=== PATIENT | female | born 1965 | race Caucasian/White ===

== ENCOUNTER 2016-08-17 22:15 | Inpatient (IN) | payer MEDICARE, BC ==
--- NOTE | ~2016-08-17 | HP ---
History And Physical [place] [id number] [facility] [place] [place]. [address] NAME: MANUEL BURNS : 67 STATUS : ADM IN [facility]#: [id number] AGE: 50 ADM/REG DATE : 08/17/16 MR#: [id number] REPORT SERV DATE: 08/18/16 DICTATED BY: RON DELEON DATE: 08/17/16 REPORT STATUS : Draft TRANSCRIBED BY: MODL DATE: 08/17/16 DATE OF ADMISSION: 08/17/2016 HISTORY OF PRESENT ILLNESS: Ms. Burns is a 50-year-old white female, with end-stage renal disease, Thursday, Thursday, Thursday [facility]; admitted through the emergency room at [facility] for DKA. PAST MEDICAL HISTORY: End-stage renal disease, on hemodialysis; CVA in February 2016 which required prolonged rehabilitation has recovered now, diabetes mellitus type 1, chronic hypertension, hyperlipidemia and multiple allergies. ALLERGIES: SULFA, IBUPROFEN, CLINDAMYCIN, CIPROFLOXACIN, ADHESIVE, SIMVASTATIN, DILAUDID, VANCOMYCIN, AND TEGADERM. SOCIAL HISTORY: Not relevant. FAMILY HISTORY: Not relevant except for several family members have come up down with viral infection, upper respiratory infection which she believes she is contracted. REVIEW OF SYSTEMS: Chest pain this evening while she was working in the house went to the emergency room at [facility] for evaluation and found to have minimally elevated troponin, her blood sugar was quite high and she had positive ketones. This morning her fasting blood sugars over 300 which is unusual for her, but she attributed to the upper respiratory infection she was getting. Family members had been sick with this and she was with the family members on Thursday when they took her to dialysis. Chest pain resolved after 2 mg of morphine at [facility] emergency room. Remainder review of systems was negative with afebrile and no arrhythmias. PHYSICAL EXAMINATION: VITAL SIGNS: Blood pressure 177/72, heart rate of 99, respirations 20, temperature 97.9. GENERAL: Alert, cooperative, no acute distress. Oriented x3. In intensive care unit on insulin drip. Repeat lab work pending. LUNGS: Clear. CARDIOVASCULAR: Grade 2/6 heart ejection murmur. ABDOMEN: Soft, benign. Bowel sounds present. Nontender. EXTREMITIES: 2+ edema in the lower extremities. AV graft in the left upper extremity. NEUROLOGICAL: Neurologically nonfocal. Oriented x3. HOME MEDICATIONS: Allopurinol, ascorbic acid, aspirin, calcium acetate, docusate, ferrous fumarate, gabapentin, hydrocodone, sliding scale insulin NovoLog, 15 units of insulin Lantus at night, Imdur, EMLA cream, Claritin, Protonix, pravastatin, and Renvela. LABS: Lab work shows blood gas of 7.41, pCO2 of 34, PO2 of 83, room air 98.6% saturated. Sodium 134, potassium 6.7, chloride 92, CO2 of 21, BUN of 449, creatinine 9.44. Blood sugar 408, calcium 8.4, magnesium 2.3, albumin 3.5. Normal liver enzymes, elevated troponin of History And Physical [address] [place]. [address] NAME: MANUEL BURNS : 67 STATUS : ADM IN [facility]#: [id number] AGE: 50 ADM/REG DATE : 08/17/16 MR#: [id number] REPORT SERV DATE: 08/18/16 DICTATED BY: RON DELEON DATE: 08/17/16 REPORT STATUS : Draft TRANSCRIBED BY: NANDA DATE: 08/17/16 0.18. White count is 7.7, hemoglobin 11, hematocrit 37, platelet count 166,000. INR 1.1. Chest x-ray clear right shoulder prosthesis and left subclavian stent. ASSESSMENT: 1. Poorly controlled diabetes mellitus type 1 with ketosis. Blood sugar greater than 400 on insulin drip. Does not know the exact etiology but she suspects it is a viral infection. No signs of infection at present. 2. Hyperkalemia thought to be secondary to elevated blood sugar but also because of excess p.o. intake of potassium. 3. End-stage renal disease, on hemodialysis Thursday, Thursday, and Thursday. 4. CVA, February 2016 requiring hospitalization and rehabilitation, has done well with that. 5. Hypertension. 6. Hyperlipidemia. 7. Multiple allergies. 8. Positive troponin. We will watch consult Cardiology if it remains elevated. 9. Nausea and vomiting. I am not sure of etiology but suspect it has some to do with her viral illness. PLAN: We will continue the insulin drip. If potassium remains over 6 with a repeat lab work in [facility], we will plan on dialysis tonight, orders written. I was in the IMCU when she arrived from [facility]. GUY/NANDA Ron Deleon M.D. / [id number] CC: Ron Deleon M.D.
--- NOTE | ~2016-08-17 | DS ---
Discharge Summary [facility] [address] [place]. [address] NAME: MANUEL BURNS : 67 STATUS : DIS IN PAT#: [id number] AGE: 51 ADM/REG DATE : 08/17/16 MR#: [id number] REPORT SERV DATE: 09/05/16 DICTATED BY: LINCOLN DARNELL DATE: 09/04/16 REPORT STATUS : Draft TRANSCRIBED BY: NANDA DATE: 09/04/16 Data Collection from hospitalization DISCHARGE DIAGNOSES: 1. End-stage renal disease. 2. Insulin-dependent diabetes mellitus. 3. Hypertension. 4. History of cerebrovascular accident. 5. Hyperlipidemia. CONSULTATIONS: 1. Shaggy Barlow M.D. 2. West Cabello M.D. PROCEDURES PERFORMED: Cardiac catheterization, 08/20/2016. MEDICATIONS: Zyloprim 100 mg daily, vitamin C 250 mg twice a day, aspirin 81 mg twice a day, PhosLo 2 tablets as instructed, docusate sodium 100 mg twice a day, ferrous sulfate 65 mg twice a day, Neurontin 600 mg three times a day, NovoLog injection insulin before meals and at bedtime, Lantus 15 units subcutaneously daily, Imdur 60 mg daily, Emla cream one application topically prior to dialysis, Prinivil 5 mg at bedtime, Claritin 10 mg daily, Protonix 40 mg daily, Pravachol 40 mg at bedtime, and Renvela 1600 mg with meals. CONDITION AT DISCHARGE: Stable. DISPOSITION: The patient was discharged home on a clear liquid diet with activities as instructed. She will follow up with me in 4 weeks following discharge. HOSPITAL COURSE: This is a 51-year-old female who has end-stage renal disease and dialyzes on Mondays, Wednesdays, and Fridays. She presented to the emergency room at [facility] for diabetic ketoacidosis. She also developed chest pain that evening while working in the house. She had been evaluated at [facility] and was found to have minimally elevated troponin. Her blood sugar was quite high, and she had positive ketones. Her chest pain resolved after 2 mg of morphine in the emergency room. Her creatinine level was 9.44, blood sugar was 408. Chest x-ray showed right shoulder prosthesis and left subclavian stent. She was felt to have poorly controlled type 1 diabetes mellitus with ketosis. Hyperkalemia was thought to be secondary to elevated blood sugar, but also because of excess oral intake of potassium. Insulin drip was continued. She was transferred to [facility] and admitted at this time for further evaluation and treatment. Upon admission, dialysis therapy was going to be performed. She was placed in the IMCU. The following day, she said her chest pain had improved. She had trace edema. Hemodialysis therapy was performed. She was seen by Dr. Shaggy Barlow regarding elevated troponin. She has no history of coronary artery disease. Potassium level was greater than 7. She had developed substernal chest discomfort. There were no EKG changes noted reflective of ischemia or infarction. Troponin was mildly elevated at slightly greater than 1. Second troponin was 1.3. Chest discomfort resolved as the diabetic ketoacidosis resolved. EKG showed normal sinus rhythm, normal NM, QRS, and QT intervals. There was no discrete Discharge Summary [address] [place]. [address] NAME: MANUEL BURNS : 67 STATUS : DIS IN PAT#: [id number] AGE: 51 ADM/REG DATE : 08/17/16 MR#: [id number] REPORT SERV DATE: 09/05/16 DICTATED BY: LINCOLN DARNELL DATE: 09/04/16 REPORT STATUS : Draft TRANSCRIBED BY: NANDA DATE: 09/04/16 evidence for myocardial infarction or ischemia. He recommended treatment of her diabetic ketoacidosis event and dialysis as necessary to treat her potassium elevation. At this point, he did not feel that she would need to undergo ischemic workup. He was going to consider stress testing as an outpatient especially if there was recurrence of chest discomfort. On the , metoprolol was added. Repeat troponin was going to be obtained. ECG revealed sinus rhythm. An echocardiogram was going to be performed. If potassium level improved and glucose level, it was felt that the patient should undergo cardiac catheterization and possible percutaneous coronary intervention. Cardiac evaluation was in progress Lantus was increased. Hemodialysis therapy continued. She was seen by Dr. West Cabello. The patient denies any history of access issues recently in outpatient dialysis. She was going to be held n.p.o. after midnight. It was felt that the patient may need to undergo left upper extremity fistulogram, possible stent/angioplasty. On 08/20/2016, echocardiogram was performed. She felt well. She had no chest pain or shortness of breath. Her lungs were clear. Pravastatin was changed to atorvastatin. Metoprolol was continued as well as Imdur and aspirin. She felt like she had "fluttering in her chest." Potassium level had normalized. She does have chronic lower extremity erythema. Her diabetes remained under poor control. She was taken to the cardiac director of cath lab where she underwent the above-mentioned procedure by Dr. Warren Huddleston. She tolerated this well. There were no complications. On 08/21/2016, medical therapy has been recommended for coronary artery disease due to small vessels. A fistulogram was going to be performed. She underwent diabetes education. The next day, it was elected to wait 36 hours on fistulogram because the patient had cardiac catheterization on the day that was scheduled for the fistulogram. A recent fistulogram had been performed on 07/10. Observation was recommended. On 08/23/2016, the patient was wanting to go home. Over the next couple of days, she had no shortness of breath or chest pain. Her constipation had improved. Discharge planning was performed. The patient was going to follow up as an outpatient with Dr. Cabello. On 08/25/2016, she was in no acute distress. Discharge instructions were given. She was evaluated by Physical Therapy. Due to her improved and stable condition, she was discharged home with the above-stated instructions. Information collected by: Jing Fields I submit the above information as my discharge summary. TG/MODL Lincoln Darnell M.D. / [id number] CC: Janet Davenport M.D. Discharge Summary [address] [address] NAME: MANUEL BURNS : 67 STATUS : DIS IN [facility]#: [id number] AGE: 51 ADM/REG DATE : 08/17/16 MR#: [id number] REPORT SERV DATE: 09/05/16 DICTATED BY: LINCOLN DARNELL DATE: 09/04/16 REPORT STATUS : Draft TRANSCRIBED BY: NANDA DATE: 09/04/16 Dr. Jc Cabello II, M.D.
--- NOTE | ~2016-08-17 | CN ---
Consultation Report [facility] [address] [place]. [address] NAME: MANUEL TURNER : 67 STATUS : ADM IN PAT#: [id number] AGE: 50 ADM/REG DATE : 08/17/16 MR#: [id number] REPORT SERV DATE: 08/18/16 DICTATED BY: ADORE ZENDEJAS DATE: 08/18/16 REPORT STATUS : Draft TRANSCRIBED BY: MODL DATE: 08/18/16 CARDIOLOGY CONSULTATION DATE OF CONSULTATION: 08/18/2016 REASON FOR CONSULTATION: Elevated troponin. HISTORY OF PRESENT ILLNESS: Ms. Turner is a pleasant 50-year-old woman with no history of coronary artery disease. She does have end-stage renal disease and is on Thursday, Thursday, Thursday dialysis. She was admitted with DKA, which she has had on several occasions in the past. Her glucose was 400 and her potassium was greater than 7, and she received emergency dialysis along with IV insulin administration. In this setting, she developed substernal chest discomfort. There were no EKG changes noted reflective of ischemia or infarction. The troponin was mildly elevated at slightly greater than 1, and the second troponin was at 1.3. The chest discomfort resolved as the DKA resolved. The patient denies any problems with chest discomfort, chest pressure or pain in the weeks prior to her DKA event. PAST MEDICAL HISTORY: Notable for: 1. End-stage renal disease, on Thursday, Thursday, Thursday dialysis. 2. Type 1 diabetes. 3. Hypertension. 4. History of CVA in 02/2016, at which time she underwent implantable loop recorder by Dr. Daniel Centeno. HOME MEDICATIONS: Include allopurinol, aspirin 81 mg daily, iron, insulin, isosorbide, lisinopril, Pravachol. FAMILY HISTORY: Negative for premature coronary disease. SOCIAL HISTORY: Negative for tobacco or alcohol. REVIEW OF SYSTEMS: As noted above. All other systems reviewed and negative. PHYSICAL EXAMINATION: VITAL SIGNS: Currently, pulse of 82, blood pressure of 120/60, respirations 16. GENERAL: Well developed, well nourished. HEENT: No icterus. Good dentition. NECK: Supple. No masses or thyromegaly. LUNGS: Breathing comfortably. No rales or wheezes. COR: Normal S1 and S2. No S3 or S4. No murmurs, clicks, rubs. No JVD. ABD: Soft, nondistended, nontender. No hepatosplenomegaly. EXT: No clubbing, cyanosis, or edema. Peripheral pulses 2+/= bilaterally. SKIN: Warm and dry. No visible lesions. Consultation Report [facility] [address] [place]. [address] NAME: MANUEL TURNER : 67 STATUS : ADM IN [facility]#: [id number] AGE: 50 ADM/REG DATE : 08/17/16 MR#: [id number] REPORT SERV DATE: 08/18/16 DICTATED BY: ADORE ZENDEJAS DATE: 08/18/16 REPORT STATUS : Draft TRANSCRIBED BY: NANDA DATE: 08/18/16 MS: Chest wall without deformity. No obvious clavicular fractures. NEURO/PSYCH: Oriented x3. No anxiety or depression. DATA: EKG shows normal sinus rhythm. Normal [place], QRS, and QT intervals. No discrete evidence for myocardial infarction or ischemia. IMPRESSION: 1. The patient with complaints of chest discomfort that occurred in the setting of diabetic ketoacidosis with a glucose of 400 and a potassium of greater than 7. There was no ischemia or infarction reflected on her EKG. Her chest discomfort has resolved. She has a slight troponin elevation, but essentially unchanged on a second troponin. She does not have any chest discomfort currently and did not have any in the weeks prior to her diabetic ketoacidosis. I would recommend treatment of her diabetic ketoacidosis event and dialysis as necessary to treat her potassium elevation. Careful monitoring of potassium obviously important given the potential for fluctuations in serum potassium levels in the setting of diabetic ketoacidosis, especially along with dialysis. At this point, I do not feel she needs to undergo ischemic workup. We could consider stress testing as an outpatient, especially if there is any recurrence of chest discomfort. 2. History of cerebrovascular accident in 02/2016, status post implantable loop recorder by Dr. Centeno. As of yet, no demonstration of atrial fibrillation to suggest changing management for cerebrovascular accident. REBA/NANDA Adore Zendejas M.D. / [id number] CC: Ron Elizondo M.D.
[~2016-08-17 22:15] MED LIST: ALKA SELTZER CHEWS; ALKA SELTZER CHEWS PO; ALPHAGAN OPH; ASAB PO; ATROPINE SUL1 % OPH; BIST PO; CLARIT10 PO; COSOPT OPH; DIAM250B PO; DOK100 MG PO; DSS PO; EMLA TOP; EPOGEN2000 MG/ML IV; FERROUS SULF324 MG PO; FERROUS SULF325 M1 PO; FERROUS SULFATE PO; FLORASTOR250 MG PO; HALF81 PO; IMDUR60 PO; IRON325 MG PO; K500 PO; L80 PO; LANTUS SC; MAXITROL OPH; NEPHROCAPS PO; NEUR400 PO; NEUR600 PO; NORCO1 TAB PO; NORV5 PO; NOVOLOG SC; OXYCOD PO; PHOSLO PO; PRAVACHOL40 MG PO; PRIN5 PO; PROTONIX PO; RENVELA800 MG PO; SEVE800T PO; STOOL SOFTEN100 MG PO; TRAVATAN Z0.004 % OPH; TRESIBA SC; TUMS E-X750 M2 PO; VITAMIN C100 MG PO; VITC500 PO; Z100 PO; ZANTAC OTC PO; ZESTRIL5 MG PO; ZOFRAN4 PO; [UNRECOGNIZED DRUG - OTHER] PO
[2016-08-17 23:41] LABS: ALBUMIN 3.2 G/DL (3.5-5.0); CHLORIDE, SERUM 95 MMOL/L (96-112); CREATININE 9.86 MG/DL (0.55-1.02); GFR AFRICAN AMERICAN 5 ML/MIN (>=60); GFR NON AFRICAN AMERICAN 4 ML/MIN (>=60); PHOSPHORUS, SERUM 3.4 MG/DL (2.5-4.5); SODIUM, SERUM 137 MMOL/L (135-148)
[2016-08-17 23:46] LABS: BUN (BLOOD UREA NITROGEN) 57 MG/DL (6-23); CO2 (CARBON DIOXIDE) 26 MMOL/L (24-34); GLUCOSE, SERUM 314 MG/DL (60-99); POTASSIUM, SERUM 5.2 MMOL/L (3.5-5.3); TROPONIN I 0.21 NG/ML (<0.05)
[2016-08-18 04:46] LABS: BASOPHILS 0.3 %; BASOPHILS ABSOLUTE 0.02 10/3/uL (0.0-0.16); EOSINOPHILS 2.8 %; EOSINOPHILS ABSOLUTE 0.18 10/3/uL (0.0-0.53); HEMATOCRIT 34.8 % (36.0-48.0); HEMOGLOBIN 11.2 g/dL (12.0-16.0); IMMATURE GRANULOCYTES 0.2 %; IMMATURE GRANULOCYTES ABSOLUTE 0.01 10/3/uL (0.0-0.11); LYMPHOCYTES ABSOLUTE 1.95 10/3/uL (0.67-4.30); MEAN CORPUS HGB CONC 32.2 g/dL (32.0-36.0); MEAN CORPUSCULAR HEMOGLOB 30.6 pg (26.0-34.0); MEAN CORPUSCULAR VOLUME 95.1 fL (80-100); MEAN PLATELET VOLUME 10.5 fL (9.2-13.0); MONOCYTES 13.1 %; MONOCYTES ABSOLUTE 0.85 10/3/uL (0.21-1.20); NEUTROPHILS 53.6 %; PLATELET COUNT 201 10/3/uL (150-400); RBC DISTRIBUTION WIDTH 13.9 % (12.0-16.0); RED CELL COUNT 3.66 10/6/uL (4.0-5.6); WHITE BLOOD CELLS 6.5 10/3/uL (4.5-10.5)
[2016-08-18 04:48] LABS: MANUAL DIFF NO %
[2016-08-18 05:05] LABS: ALBUMIN 3.2 G/DL (3.5-5.0); BUN (BLOOD UREA NITROGEN) 58 MG/DL (6-23); CALCIUM, SERUM 9.3 MG/DL (8.5-10.4); CHLORIDE, SERUM 96 MMOL/L (96-112); GFR AFRICAN AMERICAN 5 ML/MIN (>=60); GFR NON AFRICAN AMERICAN 4 ML/MIN (>=60); POTASSIUM, SERUM 5.2 MMOL/L (3.5-5.3); SODIUM, SERUM 141 MMOL/L (135-148)
[2016-08-18 05:07] LABS: CO2 (CARBON DIOXIDE) 31 MMOL/L (24-34); GLUCOSE, SERUM 105 MG/DL (60-99); TROPONIN I 1.03 NG/ML (<0.05)
[2016-08-18 08:56] LABS: ALBUMIN 3.2 G/DL (3.5-5.0); BUN (BLOOD UREA NITROGEN) 57 MG/DL (6-23); CALCIUM, SERUM 8.8 MG/DL (8.5-10.4); CHLORIDE, SERUM 95 MMOL/L (96-112); CO2 (CARBON DIOXIDE) 24 MMOL/L (24-34); GFR AFRICAN AMERICAN 5 ML/MIN (>=60); GFR NON AFRICAN AMERICAN 4 ML/MIN (>=60); GLUCOSE, SERUM 295 MG/DL (60-99); PHOSPHORUS, SERUM 4.4 MG/DL (2.5-4.5); POTASSIUM, SERUM 7.2 MMOL/L (3.5-5.3); SODIUM, SERUM 135 MMOL/L (135-148)
[2016-08-18 11:35] LABS: ALBUMIN 3.1 G/DL (3.5-5.0); CALCIUM, SERUM 9.2 MG/DL (8.5-10.4); CHLORIDE, SERUM 93 MMOL/L (96-112); CO2 (CARBON DIOXIDE) 26 MMOL/L (24-34); GLUCOSE, SERUM 259 MG/DL (60-99); PHOSPHORUS, SERUM 4.1 MG/DL (2.5-4.5); SODIUM, SERUM 136 MMOL/L (135-148)
[2016-08-18 11:37] LABS: BUN (BLOOD UREA NITROGEN) 62 MG/DL (6-23); GFR AFRICAN AMERICAN 4 ML/MIN (>=60); GFR NON AFRICAN AMERICAN 4 ML/MIN (>=60)
[2016-08-18 11:38] LABS: TROPONIN I 1.37 NG/ML (<0.05)
[2016-08-18 20:24] LABS: ALBUMIN 2.8 G/DL (3.5-5.0); CALCIUM, SERUM 8.7 MG/DL (8.5-10.4); CHLORIDE, SERUM 94 MMOL/L (96-112); CO2 (CARBON DIOXIDE) 26 MMOL/L (24-34); SODIUM, SERUM 134 MMOL/L (135-148)
[2016-08-18 20:31] LABS: BUN (BLOOD UREA NITROGEN) 39 MG/DL (6-23); GFR AFRICAN AMERICAN 7 ML/MIN (>=60); GFR NON AFRICAN AMERICAN 6 ML/MIN (>=60); GLUCOSE, SERUM 362 MG/DL (60-99); PHOSPHORUS, SERUM 3.7 MG/DL (2.5-4.5); POTASSIUM, SERUM 5.5 MMOL/L (3.5-5.3)
[2016-08-18 21:57] LABS: BASOPHILS 0.4 %; BASOPHILS ABSOLUTE 0.03 10/3/uL (0.0-0.16); EOSINOPHILS 1.4 %; EOSINOPHILS ABSOLUTE 0.11 10/3/uL (0.0-0.53); HEMOGLOBIN 10.8 g/dL (12.0-16.0); IMMATURE GRANULOCYTES 0.5 %; IMMATURE GRANULOCYTES ABSOLUTE 0.04 10/3/uL (0.0-0.11); LYMPHOCYTES 19.1 %; LYMPHOCYTES ABSOLUTE 1.47 10/3/uL (0.67-4.30); MEAN CORPUSCULAR VOLUME 94.7 fL (80-100); MEAN PLATELET VOLUME 10.8 fL (9.2-13.0); MONOCYTES 13.2 %; MONOCYTES ABSOLUTE 1.01 10/3/uL (0.21-1.20); NEUTROPHILS 65.4 %; NEUTROPHILS ABSOLUTE 5.02 10/3/uL (2.02-8.40); PLATELET COUNT 167 10/3/uL (150-400); RBC DISTRIBUTION WIDTH 13.9 % (12.0-16.0); RED CELL COUNT 3.18 10/6/uL (4.0-5.6); WHITE BLOOD CELLS 7.7 10/3/uL (4.5-10.5)
[2016-08-18 21:58] LABS: HEMATOCRIT 30.1 % (36.0-48.0); MANUAL DIFF NO %; MEAN CORPUS HGB CONC 35.9 g/dL (32.0-36.0)
[2016-08-19 02:42] LABS: ALBUMIN 3.1 G/DL (3.5-5.0); CALCIUM, SERUM 8.9 MG/DL (8.5-10.4); CHLORIDE, SERUM 94 MMOL/L (96-112); CO2 (CARBON DIOXIDE) 29 MMOL/L (24-34); SODIUM, SERUM 133 MMOL/L (135-148)
[2016-08-19 02:43] LABS: BUN (BLOOD UREA NITROGEN) 47 MG/DL (6-23); CREATININE 8.47 MG/DL (0.55-1.02); GFR AFRICAN AMERICAN 6 ML/MIN (>=60); GFR NON AFRICAN AMERICAN 5 ML/MIN (>=60); GLUCOSE, SERUM 402 MG/DL (60-99); PHOSPHORUS, SERUM 3.9 MG/DL (2.5-4.5)
[2016-08-19 02:44] LABS: POTASSIUM, SERUM 6.5 MMOL/L (3.5-5.3)
[2016-08-19 07:05] LABS: BASOPHILS 0.1 %; BASOPHILS ABSOLUTE 0.01 10/3/uL (0.0-0.16); EOSINOPHILS 1.5 %; HEMOGLOBIN 11.1 g/dL (12.0-16.0); IMMATURE GRANULOCYTES 0.3 %; IMMATURE GRANULOCYTES ABSOLUTE 0.02 10/3/uL (0.0-0.11); LYMPHOCYTES 14.8 %; LYMPHOCYTES ABSOLUTE 1.02 10/3/uL (0.67-4.30); MEAN CORPUSCULAR HEMOGLOB 31.7 pg (26.0-34.0); MEAN CORPUSCULAR VOLUME 95.4 fL (80-100); MEAN PLATELET VOLUME 10.7 fL (9.2-13.0); MONOCYTES 7.1 %; MONOCYTES ABSOLUTE 0.49 10/3/uL (0.21-1.20); NEUTROPHILS 76.2 %; NEUTROPHILS ABSOLUTE 5.25 10/3/uL (2.02-8.40); PLATELET COUNT 165 10/3/uL (150-400); RBC DISTRIBUTION WIDTH 13.7 % (12.0-16.0); WHITE BLOOD CELLS 6.9 10/3/uL (4.5-10.5)
[2016-08-19 07:07] LABS: HEMATOCRIT 33.4 % (36.0-48.0); MANUAL DIFF NO %; MEAN CORPUS HGB CONC 33.2 g/dL (32.0-36.0)
[2016-08-19 15:19] LABS: ALBUMIN 3.5 G/DL (3.5-5.0); CALCIUM, SERUM 9.6 MG/DL (8.5-10.4); CHLORIDE, SERUM 101 MMOL/L (96-112); CO2 (CARBON DIOXIDE) 31 MMOL/L (24-34); PHOSPHORUS, SERUM 3.1 MG/DL (2.5-4.5)
[2016-08-19 15:20] LABS: SODIUM, SERUM 141 MMOL/L (135-148)
[2016-08-19 15:22] LABS: BUN (BLOOD UREA NITROGEN) 32 MG/DL (6-23); CREATININE 6.44 MG/DL (0.55-1.02); GFR AFRICAN AMERICAN 8 ML/MIN (>=60); GFR NON AFRICAN AMERICAN 7 ML/MIN (>=60); GLUCOSE, SERUM 153 MG/DL (60-99)
[2016-08-19 15:24] LABS: TROPONIN I 2.15 NG/ML (<0.05)
[2016-08-19 15:25] LABS: POTASSIUM, SERUM 4.3 MMOL/L (3.5-5.3)
[2016-08-20 05:31] LABS: BASOPHILS 0.2 %; BASOPHILS ABSOLUTE 0.02 10/3/uL (0.0-0.16); EOSINOPHILS 2.1 %; EOSINOPHILS ABSOLUTE 0.17 10/3/uL (0.0-0.53); HEMOGLOBIN 11.3 g/dL (12.0-16.0); IMMATURE GRANULOCYTES 0.4 %; IMMATURE GRANULOCYTES ABSOLUTE 0.03 10/3/uL (0.0-0.11); LYMPHOCYTES 24.2 %; LYMPHOCYTES ABSOLUTE 1.96 10/3/uL (0.67-4.30); MEAN CORPUS HGB CONC 32.3 g/dL (32.0-36.0); MEAN CORPUSCULAR HEMOGLOB 30.5 pg (26.0-34.0); MEAN CORPUSCULAR VOLUME 94.3 fL (80-100); MEAN PLATELET VOLUME 10.8 fL (9.2-13.0); MONOCYTES 10.7 %; MONOCYTES ABSOLUTE 0.87 10/3/uL (0.21-1.20); NEUTROPHILS 62.4 %; NEUTROPHILS ABSOLUTE 5.05 10/3/uL (2.02-8.40); PLATELET COUNT 182 10/3/uL (150-400); RBC DISTRIBUTION WIDTH 13.7 % (12.0-16.0); RED CELL COUNT 3.71 10/6/uL (4.0-5.6); WHITE BLOOD CELLS 8.1 10/3/uL (4.5-10.5)
[2016-08-20 05:32] LABS: MANUAL DIFF NO %
[2016-08-20 05:45] LABS: ALBUMIN 3.3 G/DL (3.5-5.0); CALCIUM, SERUM 9.7 MG/DL (8.5-10.4); CHLORIDE, SERUM 100 MMOL/L (96-112); PHOSPHORUS, SERUM 3.4 MG/DL (2.5-4.5); SODIUM, SERUM 140 MMOL/L (135-148)
[2016-08-20 05:47] LABS: BUN (BLOOD UREA NITROGEN) 41 MG/DL (6-23); CO2 (CARBON DIOXIDE) 25 MMOL/L (24-34); CREATININE 7.82 MG/DL (0.55-1.02); GFR AFRICAN AMERICAN 6 ML/MIN (>=60); GFR NON AFRICAN AMERICAN 5 ML/MIN (>=60); GLUCOSE, SERUM 251 MG/DL (60-99)
[2016-08-20 05:49] LABS: POTASSIUM, SERUM 4.2 MMOL/L (3.5-5.3)
[2016-08-21 04:41] LABS: BASOPHILS 0.5 %; BASOPHILS ABSOLUTE 0.03 10/3/uL (0.0-0.16); EOSINOPHILS 1.7 %; EOSINOPHILS ABSOLUTE 0.11 10/3/uL (0.0-0.53); HEMATOCRIT 31.6 % (36.0-48.0); HEMOGLOBIN 10.4 g/dL (12.0-16.0); IMMATURE GRANULOCYTES 0.5 %; IMMATURE GRANULOCYTES ABSOLUTE 0.03 10/3/uL (0.0-0.11); LYMPHOCYTES 22.2 %; LYMPHOCYTES ABSOLUTE 1.44 10/3/uL (0.67-4.30); MEAN CORPUS HGB CONC 32.9 g/dL (32.0-36.0); MEAN CORPUSCULAR HEMOGLOB 30.7 pg (26.0-34.0); MEAN CORPUSCULAR VOLUME 93.2 fL (80-100); MEAN PLATELET VOLUME 10.2 fL (9.2-13.0); MONOCYTES 6.6 %; MONOCYTES ABSOLUTE 0.43 10/3/uL (0.21-1.20); NEUTROPHILS 68.5 %; NEUTROPHILS ABSOLUTE 4.45 10/3/uL (2.02-8.40); PLATELET COUNT 170 10/3/uL (150-400); RED CELL COUNT 3.39 10/6/uL (4.0-5.6); WHITE BLOOD CELLS 6.5 10/3/uL (4.5-10.5)
[2016-08-21 04:43] LABS: MANUAL DIFF NO %
[2016-08-21 04:55] LABS: ALBUMIN 2.9 G/DL (3.5-5.0); BUN (BLOOD UREA NITROGEN) 57 MG/DL (6-23); CALCIUM, SERUM 8.6 MG/DL (8.5-10.4); CHLORIDE, SERUM 94 MMOL/L (96-112); CO2 (CARBON DIOXIDE) 25 MMOL/L (24-34); GFR AFRICAN AMERICAN 5 ML/MIN (>=60); GFR NON AFRICAN AMERICAN 4 ML/MIN (>=60); GLUCOSE, SERUM 254 MG/DL (60-99); PHOSPHORUS, SERUM 3.6 MG/DL (2.5-4.5); POTASSIUM, SERUM 4.8 MMOL/L (3.5-5.3); SODIUM, SERUM 135 MMOL/L (135-148)
[2016-08-22 05:26] LABS: BASOPHILS 0.1 %; BASOPHILS ABSOLUTE 0.01 10/3/uL (0.0-0.16); EOSINOPHILS 3.2 %; EOSINOPHILS ABSOLUTE 0.24 10/3/uL (0.0-0.53); HEMATOCRIT 31.6 % (36.0-48.0); HEMOGLOBIN 10.4 g/dL (12.0-16.0); IMMATURE GRANULOCYTES 0.3 %; IMMATURE GRANULOCYTES ABSOLUTE 0.02 10/3/uL (0.0-0.11); LYMPHOCYTES 24.3 %; LYMPHOCYTES ABSOLUTE 1.82 10/3/uL (0.67-4.30); MANUAL DIFF NO %; MEAN CORPUS HGB CONC 32.9 g/dL (32.0-36.0); MEAN CORPUSCULAR HEMOGLOB 30.8 pg (26.0-34.0); MEAN CORPUSCULAR VOLUME 93.5 fL (80-100); MEAN PLATELET VOLUME 10.3 fL (9.2-13.0); MONOCYTES 7.2 %; MONOCYTES ABSOLUTE 0.54 10/3/uL (0.21-1.20); NEUTROPHILS 64.9 %; NEUTROPHILS ABSOLUTE 4.86 10/3/uL (2.02-8.40); PLATELET COUNT 183 10/3/uL (150-400); RBC DISTRIBUTION WIDTH 13.9 % (12.0-16.0); RED CELL COUNT 3.38 10/6/uL (4.0-5.6); WHITE BLOOD CELLS 7.5 10/3/uL (4.5-10.5)
[2016-08-22 05:49] LABS: ALBUMIN 2.9 G/DL (3.5-5.0); CALCIUM, SERUM 8.3 MG/DL (8.5-10.4); CHLORIDE, SERUM 96 MMOL/L (96-112); CO2 (CARBON DIOXIDE) 26 MMOL/L (24-34); GFR AFRICAN AMERICAN 4 ML/MIN (>=60); GFR NON AFRICAN AMERICAN 3 ML/MIN (>=60); GLUCOSE, SERUM 210 MG/DL (60-99); PHOSPHORUS, SERUM 3.5 MG/DL (2.5-4.5); POTASSIUM, SERUM 4.5 MMOL/L (3.5-5.3); SODIUM, SERUM 136 MMOL/L (135-148)
[2016-08-22 05:57] LABS: BUN (BLOOD UREA NITROGEN) 66 MG/DL (6-23)
[2016-08-22 13:51] LABS: CALCIUM, SERUM 8.8 MG/DL (8.5-10.4); CHLORIDE, SERUM 104 MMOL/L (96-112); CO2 (CARBON DIOXIDE) 29 MMOL/L (24-34); GFR AFRICAN AMERICAN 10 ML/MIN (>=60); GFR NON AFRICAN AMERICAN 9 ML/MIN (>=60); GLUCOSE, SERUM 192 MG/DL (60-99); POTASSIUM, SERUM 3.9 MMOL/L (3.5-5.3)
[2016-08-22 13:58] LABS: BUN (BLOOD UREA NITROGEN) 23 MG/DL (6-23); CREATININE 5.23 MG/DL (0.55-1.02); SODIUM, SERUM 143 MMOL/L (135-148)
[2016-08-23 05:16] LABS: BASOPHILS 0.4 %; BASOPHILS ABSOLUTE 0.03 10/3/uL (0.0-0.16); EOSINOPHILS 3.4 %; EOSINOPHILS ABSOLUTE 0.24 10/3/uL (0.0-0.53); HEMATOCRIT 32.7 % (36.0-48.0); HEMOGLOBIN 10.6 g/dL (12.0-16.0); IMMATURE GRANULOCYTES 0.3 %; IMMATURE GRANULOCYTES ABSOLUTE 0.02 10/3/uL (0.0-0.11); LYMPHOCYTES 24.8 %; LYMPHOCYTES ABSOLUTE 1.74 10/3/uL (0.67-4.30); MANUAL DIFF NO %; MEAN CORPUS HGB CONC 32.4 g/dL (32.0-36.0); MEAN CORPUSCULAR HEMOGLOB 30.9 pg (26.0-34.0); MEAN CORPUSCULAR VOLUME 95.3 fL (80-100); MEAN PLATELET VOLUME 10.5 fL (9.2-13.0); MONOCYTES 7.3 %; MONOCYTES ABSOLUTE 0.51 10/3/uL (0.21-1.20); NEUTROPHILS 63.8 %; NEUTROPHILS ABSOLUTE 4.49 10/3/uL (2.02-8.40); PLATELET COUNT 192 10/3/uL (150-400); RBC DISTRIBUTION WIDTH 14.1 % (12.0-16.0); RED CELL COUNT 3.43 10/6/uL (4.0-5.6)
[2016-08-23 05:30] LABS: ALBUMIN 3.2 G/DL (3.5-5.0); CALCIUM, SERUM 8.6 MG/DL (8.5-10.4); CHLORIDE, SERUM 102 MMOL/L (96-112); CO2 (CARBON DIOXIDE) 28 MMOL/L (24-34); GFR AFRICAN AMERICAN 5 ML/MIN (>=60); GFR NON AFRICAN AMERICAN 5 ML/MIN (>=60); GLUCOSE, SERUM 197 MG/DL (60-99); PHOSPHORUS, SERUM 2.9 MG/DL (2.5-4.5); SODIUM, SERUM 139 MMOL/L (135-148)
[2016-08-23 05:31] LABS: BUN (BLOOD UREA NITROGEN) 38 MG/DL (6-23); CREATININE 9.19 MG/DL (0.55-1.02); POTASSIUM, SERUM 4.8 MMOL/L (3.5-5.3)
[2016-08-24 07:21] LABS: BUN (BLOOD UREA NITROGEN) 54 MG/DL (6-23); CHLORIDE, SERUM 96 MMOL/L (96-112); CO2 (CARBON DIOXIDE) 25 MMOL/L (24-34); GFR AFRICAN AMERICAN 4 ML/MIN (>=60); GFR NON AFRICAN AMERICAN 4 ML/MIN (>=60); GLUCOSE, SERUM 357 MG/DL (60-99); PHOSPHORUS, SERUM 2.9 MG/DL (2.5-4.5); POTASSIUM, SERUM 5.1 MMOL/L (3.5-5.3); SODIUM, SERUM 133 MMOL/L (135-148)
[2016-08-25 04:58] LABS: BASOPHILS 0.3 %; BASOPHILS ABSOLUTE 0.02 10/3/uL (0.0-0.16); EOSINOPHILS 3.8 %; EOSINOPHILS ABSOLUTE 0.26 10/3/uL (0.0-0.53); HEMATOCRIT 31.6 % (36.0-48.0); HEMOGLOBIN 10.3 g/dL (12.0-16.0); IMMATURE GRANULOCYTES 0.3 %; IMMATURE GRANULOCYTES ABSOLUTE 0.02 10/3/uL (0.0-0.11); LYMPHOCYTES 29.7 %; LYMPHOCYTES ABSOLUTE 2.06 10/3/uL (0.67-4.30); MEAN CORPUS HGB CONC 32.6 g/dL (32.0-36.0); MEAN CORPUSCULAR HEMOGLOB 30.6 pg (26.0-34.0); MEAN CORPUSCULAR VOLUME 93.8 fL (80-100); MEAN PLATELET VOLUME 10.8 fL (9.2-13.0); MONOCYTES 6.3 %; MONOCYTES ABSOLUTE 0.44 10/3/uL (0.21-1.20); NEUTROPHILS 59.6 %; NEUTROPHILS ABSOLUTE 4.13 10/3/uL (2.02-8.40); PLATELET COUNT 186 10/3/uL (150-400); RED CELL COUNT 3.37 10/6/uL (4.0-5.6); WHITE BLOOD CELLS 6.9 10/3/uL (4.5-10.5)
[2016-08-25 05:03] LABS: MANUAL DIFF NO %
[2016-08-25 05:10] LABS: CALCIUM, SERUM 8.9 MG/DL (8.5-10.4); CHLORIDE, SERUM 96 MMOL/L (96-112); CO2 (CARBON DIOXIDE) 27 MMOL/L (24-34); PHOSPHORUS, SERUM 2.9 MG/DL (2.5-4.5); POTASSIUM, SERUM 5.4 MMOL/L (3.5-5.3); SODIUM, SERUM 133 MMOL/L (135-148)
[2016-08-25 05:15] LABS: BUN (BLOOD UREA NITROGEN) 66 MG/DL (6-23); GFR AFRICAN AMERICAN 3 ML/MIN (>=60); GFR NON AFRICAN AMERICAN 3 ML/MIN (>=60); GLUCOSE, SERUM 243 MG/DL (60-99)
[2016-08-25] MEDS ORDERED: NOVOLOG SC (14:43)
[2017-01-06] MEDS ORDERED: TOPXL25 PO (17:04)
[2017-01-06] MEDS ORDERED: NORCO1 TAB PO (17:04)
[2017-01-08] MEDS ORDERED: LOP25 PO (16:16)
== END 2016-08-25 15:55 | disposition home or self-care (01) | DRG 637 ==
LOC: IMCU 22:15 → 6NO 08-21 13:30
PROVIDERS: Internal Medicine Cardiovascular Disease; Internal Medicine Nephrology; Nurse Practitioner
PROC: 5A1D60Z (ICD-10-PCS; 2016-08-18)
PROC: 4A023N7 Measurement of Cardiac Sampling and Pressure, Left Heart, Percutaneous Approach (ICD-10-PCS; principal; 2016-08-20)
PROC: B2111ZZ Fluoroscopy of Multiple Coronary Arteries using Low Osmolar Contrast (ICD-10-PCS; 2016-08-20)
PROC: B2151ZZ Fluoroscopy of Left Heart using Low Osmolar Contrast (ICD-10-PCS; 2016-08-20)
DX: E10.10 Type 1 diabetes mellitus with ketoacidosis without coma (principal); N18.6 End stage renal disease; I12.0 Hypertensive chronic kidney disease with stage 5 chronic kidney disease or end stage renal disease; E10.22 Type 1 diabetes mellitus with diabetic chronic kidney disease; I25.10 Atherosclerotic heart disease of native coronary artery without angina pectoris; E87.5 Hyperkalemia; E78.5 Hyperlipidemia, unspecified; Z99.2 Dependence on renal dialysis; Z86.73 Personal history of transient ischemic attack (TIA), and cerebral infarction without residual deficits; Z79.4 Long term (current) use of insulin; Z88.2 Allergy status to sulfonamides; Z88.1 Allergy status to other antibiotic agents; Z88.8 Allergy status to other drugs, medicaments and biological substances; Z91.048 Other nonmedicinal substance allergy status; Z79.82 Long term (current) use of aspirin; Z79.899 Other long term (current) drug therapy; Z96.611 Presence of right artificial shoulder joint
CPT/HCPCS: 36600; 71020; 80048; 80069; 80076; 82009; 82805; 82962; 83036; 83690; 83735; 84484; 84703; 85025; 85610; 85730; 87641; 93005; 93458; 96365; 96375; 97162-GP; 99152; 99285; A9270-GY; C1760; C1769; C8929; G0257; G8978-CJ-GP; G8979-CJ-GP; G8980-CJ-GP; J0360; J0610; J2250; J2405; J2550; J3010; P9047; Q9957; Q9967

== ENCOUNTER 2017-01-09 14:04 | Day surgery (SDC) | payer MEDICARE, BC ==
[~2017-01-09] VITALS: Ht 160 cm; Wt 103.0 kg
--- NOTE | ~2017-01-09 | OP ---
Record Of Operation [facility] [address] [place]. [address] NAME: MANUEL BURNS : 67 STATUS : [facility]#: [id number] AGE: 51 ADM/REG DATE : 01/09/17 MR#: [id number] REPORT SERV DATE: 01/10/17 DICTATED BY: KHAI LAMB DATE: 01/10/17 REPORT STATUS : Draft TRANSCRIBED BY: MODRoney DATE: 01/10/17 DATE OF PROCEDURE: 01/09/2017 PREOPERATIVE DIAGNOSES: 1. Left upper extremity pain. 2. End-stage renal disease. POSTOPERATIVE DIAGNOSES: 1. Left upper extremity pain. 2. End-stage renal disease. PROCEDURES: 1. Open thrombectomy of left upper extremity AV graft. 2. Fistulogram. 3. Open angioplasty of the arterial anastomosis using a 5 mm balloon. SUPER[employer]OR [employer]: Francisco Alvarado. ANESTHESIA: MAC and local. INDICATIONS: The patient is a 51-year-old female with end-stage renal disease who had an AV graft placed by Dr. Cabello a while back. She developed steal symptoms and had this revised. While this helped her symptoms, she had persistent pain. The pain had worsened recently, so she underwent a fistulogram with intervention. I actually angioplastied her brachial and axillary arteries. While there was transient improvement, she had persistent pain and wanted her graft ligated, thinking that this may be related to steal. I ligated her graft and her symptoms persisted. Thus, she asked that I open up her graft. Risks, benefits, and alternatives were discussed. She agreed to proceed. DESCRIPTION OF PROCEDURE: After informed consent was obtained, the patient was taken to the operating room and placed in the supine position on the operating table. Monitored anesthesia was administered. The patient's left upper extremity was prepped and draped in the usual sterile fashion. A longitudinal skin incision was made overlying the previous scar. Cautery was used to deepen the incision. I dissected out the graft circumferentially. I removed the two ties that I had previously placed around the graft. I controlled the graft and systemically heparinized. I created a transverse graftotomy. I passed a 4-Welsh Tom catheter toward the central venous system. I retrieved the thrombus. I obtained imaging that demonstrated residual thrombus. I retrieved this. I obtained imaging that demonstrated no significant stenosis or residual thrombus. I obtained imaging of the inflow then after performing an open thrombectomy of the arterial side of the graft. This demonstrated residual thrombus. I performed several other passes of the Tom catheter to retrieve the thrombus. There was a persistent stenosis near the arterial anastomosis. I angioplastied this with a 5-mm balloon. There was a great result with this. I then obtained imaging down the left upper extremity that demonstrated good flow all the way to the hand. I then closed up the graftotomy. I washed out the wound, achieved hemostasis, and closed the wound in layers. The patient tolerated the procedure Record Of [facility] [address] [facility] [place]. [address] NAME: MANUEL BURNS : 67 STATUS : [facility]#: [id number] AGE: 51 ADM/REG DATE : 01/09/17 MR#: [id number] REPORT SERV DATE: 01/10/17 DICTATED BY: KHAI LAMB DATE: 01/10/17 REPORT STATUS : Draft TRANSCRIBED BY: NANDA DATE: 01/10/17 well without any intraprocedural complications noted. ACID SUPERVISOR/NANDA Khai Lamb M.D. / [id number] CC: Janet Feliciano NATHAN
[~2017-01-09 14:04] MED LIST changes: +LOP25 PO; +TOPXL25 PO
[2017-01-09 15:47] LABS: CALCIUM, SERUM 8.9 MG/DL (8.5-10.4); CHLORIDE, SERUM 97 MMOL/L (96-112); CO2 (CARBON DIOXIDE) 31 MMOL/L (24-34); SODIUM, SERUM 136 MMOL/L (135-148)
[2017-01-09 15:50] LABS: POTASSIUM, SERUM 3.5 MMOL/L (3.5-5.3)
[2017-01-09 15:51] LABS: BUN (BLOOD UREA NITROGEN) 15 MG/DL (6-23); CREATININE 4.96 MG/DL (0.55-1.02); GFR AFRICAN AMERICAN 11 ML/MIN (>=60); GFR NON AFRICAN AMERICAN 9 ML/MIN (>=60); GLUCOSE, SERUM 213 MG/DL (60-99)
== END 2017-01-09 18:50 | disposition home or self-care (01) ==
LOC: SDC 14:04
PROVIDERS: Surgery
PROC: 03CY0ZZ Extirpation of Matter from Upper Artery, Open Approach (ICD-10-PCS; principal; 2017-01-09 15:15)
PROC: 037Y0ZZ Dilation of Upper Artery, Open Approach (ICD-10-PCS; 2017-01-09 15:15)
PROC: B51W1ZZ Fluoroscopy of Dialysis Shunt/Fistula using Low Osmolar Contrast (ICD-10-PCS; 2017-01-09 15:15)
DX: T82.868A Thrombosis due to vascular prosthetic devices, implants and grafts, initial encounter (principal); T82.858A Stenosis of other vascular prosthetic devices, implants and grafts, initial encounter; I12.0 Hypertensive chronic kidney disease with stage 5 chronic kidney disease or end stage renal disease; E11.22 Type 2 diabetes mellitus with diabetic chronic kidney disease; N18.6 End stage renal disease; I25.10 Atherosclerotic heart disease of native coronary artery without angina pectoris; I73.9 Peripheral vascular disease, unspecified; G47.33 Obstructive sleep apnea (adult) (pediatric); K21.9 Gastro-esophageal reflux disease without esophagitis; Z86.73 Personal history of transient ischemic attack (TIA), and cerebral infarction without residual deficits; Z99.2 Dependence on renal dialysis; Z79.899 Other long term (current) drug therapy; Z79.4 Long term (current) use of insulin; Z88.2 Allergy status to sulfonamides; Z88.6 Allergy status to analgesic agent; Z88.1 Allergy status to other antibiotic agents; Z91.048 Other nonmedicinal substance allergy status; Z88.5 Allergy status to narcotic agent; Z98.51 Tubal ligation status; Z98.890 Other specified postprocedural states
CPT/HCPCS: 36831; 36901; 36907; 80048; 82962; 84703; C1725; C1757; C1769; C1894; J0690; J2250; J2370; J2795; J3010; Q9967